=== PATIENT | female | born 1965 | race Caucasian/White ===

== ENCOUNTER → 2016-10-02 | Outpatient (CLI) | payer BC ==
[~2016-10-02] MED LIST: ASPI-557 PO; CYCL5TAB PO; [UNRECOGNIZED DRUG - CODE] SQ
[2016-10-02 15:07] LABS: BASOPHILS % (AUTO) 0.9 % (0-2); EOSINOPHILS # (AUTO) 0.1 T/MM3 (0-0.5); HCT - HEMATOCRIT 38.2 % (36-46); HGB - HEMOGLOBIN 12.7 GM/DL (12-16); LYMPHOCYTES # (AUTO) 1.2 T/MM3 (1-4.8); LYMPHOCYTES % (AUTO) 35.7 % (23-45); MEAN CORPUSCULAR HGB 29.7 UUG (26-34); MEAN CORPUSCULAR HGB CONC(MCHC 33.2 GM/DL (31-37); MEAN CORPUSCULAR VOLUME 89.5 UM3 (80-100); MEAN PLATELET VOLUME 10.1 UM3 (9.4-12.4); MONOCYTES # (AUTO) 0.4 T/MM3 (0-0.8); MONOCYTES % (AUTO) 12.1 % (0-9.0); NEUTROPHILS #(AUTO)-ABSOLUTE 1.7 T/MM3 (1.8-7.7); NEUTROPHILS % (AUTO) 49.3 % (33-66); RED BLOOD COUNT 4.27 M/MM3 (4.00-5.20); WBC - WHITE BLOOD COUNT 3.5 T/MM3 (4.5-11.0)
[2016-10-02 15:24] LABS: ALBUMIN/GLOBULIN RATIO 1.3 RATIO (1.1-2.2); ALKALINE PHOSPHATASE 66 U/L (38-126); ALT (SGPT) 53 U/L (9-52); ANION GAP 11 MEQ/L (5-15); AST (SGOT) 43 U/L (14-36); BUN/CREATININE RATIO 19 RATIO (6-26); CALCIUM 9.5 MG/DL (8.4-10.2); CHLORIDE 107 MEQ/L (98-107); CO2 - CARBON DIOXIDE 26 MEQ/L (22-30); CREATININE 0.7 MG/DL (0.7-1.2); GLOMERULAR FILTRATION RATE 88; GLUCOSE 97 MG/DL (65-110); LDH 481 U/L (313-618); POTASSIUM 4.2 MEQ/L (3.6-5); SODIUM 144 MEQ/L (134-144); TOTAL PROTEIN 7.2 G/DL (6.3-8.2)
== END ==
LOC: LAB 14:46
PROVIDERS: ATTEND Internal Medicine Hematology & Oncology
DX: D47.1 Chronic myeloproliferative disease (principal); D47.3 Essential (hemorrhagic) thrombocythemia
CPT/HCPCS: 36415; 80053; 83615; 85025